=== PATIENT | female | born 1990 | race Caucasian/White ===

== ENCOUNTER 2018-11-24 20:35 | Emergency (ER) | payer BC ==
[~2018-11-24] VITALS: Ht 165.1 cm; Wt 61.0 kg
[~2018-11-24 20:35] MED LIST: BACTRIM DS1 TAB OR; HUMALOG100 MG/ML SC; LANTUS SC; LANTUS100 MG/ML SC; NAPROSYN500 MG PO; PHENERGAN25 MG/ML RE
[2018-11-24 21:43] LABS: URINE BILIRUBIN - DIPSTICK NEGATIVE (NEGATIVE); URINE BLOOD DIPSTICK MODERATE (NEGATIVE); URINE COLOR YELLOW; URINE GLUCOSE - DIPSTICK NEGATIVE (NEGATIVE); URINE KETONE NEGATIVE (NEGATIVE); URINE NITRITE - DIPSTICK NEGATIVE (Negative); URINE PROTEIN - DIPSTICK NEGATIVE (NEG-TRACE); URINE UROBILINOGEN - DIPSTICK 0.2 E.U./dL (0.2)
[2018-11-24 21:44] LABS: URINE LEUK ESTERASE LARGE (NEGATIVE)
[2018-11-24 21:50] LABS: URINE SQUAMOUS EPITHELIAL CELL MODERATE EPI/hpf (0-FEW); URINE WBC 20-50 WBC/hpf (0-5)
[2018-11-24] MEDS ORDERED: MACRODANTIN100 MG PO (22:03)
[2018-11-24 22:40] VITALS: BP 176/95
== END 2018-11-24 22:41 | disposition home or self-care (01) | DRG 690 ==
LOC: ED 20:35
DX: N39.0 Urinary tract infection, site not specified (principal); E11.43 Type 2 diabetes mellitus with diabetic autonomic (poly)neuropathy; K31.84 Gastroparesis; Z79.4 Long term (current) use of insulin

== ENCOUNTER 2022-03-26 18:47 | Emergency (ER) | payer OTHER, BC ==
[~2022-03-26] VITALS: Ht 165.1 cm; Wt 54.5 kg
[~2022-03-26 18:47] MED LIST changes: +MACRODANTIN100 MG PO
[2022-03-26 19:22] VITALS: BP 142/87
[2022-03-26 19:53] LABS: URINE BILIRUBIN - DIPSTICK NEGATIVE (NEGATIVE); URINE BLOOD DIPSTICK NEGATIVE (NEGATIVE); URINE COLOR YELLOW; URINE GLUCOSE - DIPSTICK NEGATIVE (NEGATIVE); URINE KETONE NEGATIVE (NEGATIVE); URINE LEUK ESTERASE NEGATIVE (NEGATIVE); URINE PROTEIN - DIPSTICK NEGATIVE (NEG-TRACE)
[2022-03-26 19:54] LABS: URINE NITRITE - DIPSTICK NEGATIVE (Negative)
[2022-03-26] MEDS ORDERED: NAPROXEN500 MG PO (21:24)
[2022-03-26 21:40] VITALS: BP 142/87
== END 2022-03-26 21:47 | disposition home or self-care (01) | DRG 552 ==
LOC: ED 18:47
PROVIDERS: Nurse Practitioner
DX: S16.1XXA Strain of muscle, fascia and tendon at neck level, initial encounter (principal); V43.52XA Car driver injured in collision with other type car in traffic accident, initial encounter

== ENCOUNTER 2024-01-02 23:25 | Emergency (ER) | payer BC ==
[~2024-01-02] VITALS: Ht 165.1 cm; Wt 72.0 kg
[~2024-01-02 23:25] MED LIST changes: +INSULIN AS100 UNIT/2 PO; +KEFLEX500 MG PO; +MOTRIN800 MG PO; +NAPROXEN500 MG PO
[2024-01-02] MEDS ORDERED: ONDANSETRON HCl 4 MG/2 ML SDV IV STA (23:48)
[2024-01-02] MEDS ORDERED: SODIUM CHLORIDE 0.9% 1,000 ML IV STA (23:48)
[2024-01-02] MEDS ORDERED: LIDOCAINE VISCOUS 2% 15 ML UDC PO ONE (23:50)
[2024-01-02] MEDS ORDERED: METOCLOPRAMIDE HCL 10 MG/2 ML SDV IV ONE (23:50)
[2024-01-02] MEDS ORDERED: ALUM & MAG HYDROX-SIMETHICONE 30 ML PO ONE (23:50)
[2024-01-03 00:13] LABS: BASO% 0.3 % (0-3); HEMATOCRIT 38.5 % (37.0-47.0); IMMATURE GRANULOCYTES 0.2 % (0.0-5.0); LYMPH% 6.6 % (15-41); MEAN CORPUSCULAR HGB 30.7 pG CALC (26.0-32.0); MEAN CORPUSCULAR HGB CONC 32.2 g/dL CAL (32.0-36.0); MONO% 2.8 % (2-13); NEUT# 9.67 thou/uL (2.00-7.15); NEUT% 90.1 % (42-76); RED BLOOD COUNT 4.04 mill/uL (4.20-5.60); RED CELL DISTRI WIDTH 11.7 % (11.5-15.5)
[2024-01-03 00:15] LABS: HEMOGLOBIN 12.4 g/dl (12.0-16.0); MEAN CELL VOLUME 95.3 fL CALC (80.0-100.0)
[2024-01-03 00:30] VITALS: BP 117/69
[2024-01-03 00:30] LABS: ALBUMIN 4.2 g/dL (3.2-5.0); BILIRUBIN, TOTAL 1.3 mg/dL (0.02-1.3); CREATININE 0.6 mg/dL (0.5-1.0); TOTAL PROTEIN 7.2 g/dL (6.3-8.2)
[2024-01-03 00:39] VITALS: BP 120/72
[2024-01-03 00:55] LABS: URINE BLOOD DIPSTICK Trace-intact (NEGATIVE); URINE GLUCOSE - DIPSTICK Negative (NEGATIVE); URINE KETONE 40 mg/dL (NEGATIVE); URINE PROTEIN - DIPSTICK Negative (NEG-TRACE); URINE SPECIFIC GRAVITY >=1.030; URINE UROBILINOGEN - DIPSTICK 0.2 E.U./dL (0.2)
[2024-01-03 00:56] LABS: URINE COLOR Dark yellow; URINE LEUK ESTERASE Small (NEGATIVE)
[2024-01-03 00:57] LABS: URINE NITRITE - DIPSTICK Negative (Negative)
[2024-01-03 00:59] LABS: URINE BACTERIA MODERATE hpf; URINE EPITHELIAL CELLS MANY EPI/hpf (0-FEW)
[2024-01-03 01:00] VITALS: BP 120/75
[2024-01-03] MEDS ORDERED: REGLAN10 MG PO (01:04)
[2024-01-03] MEDS ORDERED: TAM75CAP PO (01:04)
[2024-01-03] MEDS ORDERED: OSELTAMIVIR PHOSPHATE 75 MG/TAB CAP PO ONE (01:05)
[2024-01-03 01:08] VITALS: BP 120/75
== END 2024-01-03 01:21 | disposition home or self-care (01) | DRG 195 ==
LOC: ED 23:25
PROVIDERS: Family Medicine
DX: J10.1 Influenza due to other identified influenza virus with other respiratory manifestations (principal); E11.43 Type 2 diabetes mellitus with diabetic autonomic (poly)neuropathy; K31.84 Gastroparesis; I10 Essential (primary) hypertension; Z79.4 Long term (current) use of insulin; Z20.822 Contact with and (suspected) exposure to COVID-19